=== PATIENT | female | born 2000 | race Caucasian/White ===

== ENCOUNTER → 2022-06-08 | Emergency (ER) | payer OTHER ==
[~2022-06-08] VITALS: Ht 165.1 cm; Wt 86.2 kg
== END | disposition home or self-care (01) ==
LOC: ER 00:39
DX: S69.81XA Other specified injuries of right wrist, hand and finger(s), initial encounter (principal); W46.1XXA Contact with contaminated hypodermic needle, initial encounter; Y93.9 Activity, unspecified; Y92.9 Unspecified place or not applicable

== ENCOUNTER 2022-10-04 19:46 | Emergency (ER) | payer OTHER ==
[~2022-10-04] VITALS: Ht 165.1 cm; Wt 85.7 kg
[2022-10-05] MEDS ORDERED: OSEL75CA PO (00:22)
== END 2022-10-05 00:28 | disposition home or self-care (01) ==
LOC: ER 19:46
DX: J10.1 Influenza due to other identified influenza virus with other respiratory manifestations (principal); Z20.822 Contact with and (suspected) exposure to COVID-19

== ENCOUNTER 2023-05-03 00:01 | Emergency (ER) | payer OTHER ==
[~2023-05-03] VITALS: Ht 165.1 cm; Wt 74.8 kg
[~2023-05-03 00:01] MED LIST: OSEL75CA PO
== END 2023-05-03 01:47 | disposition home or self-care (01) ==
LOC: ER 00:01
DX: O26.851 Spotting complicating pregnancy, first trimester (principal); Z3A.01 Less than 8 weeks gestation of pregnancy

== ENCOUNTER 2023-05-25 23:16 | Emergency (ER) | payer OTHER ==
[~2023-05-25] VITALS: Ht 165.1 cm; Wt 77.6 kg
[2023-05-26] MEDS ORDERED: CEPHALEXIN500 MG PO (05:07)
== END 2023-05-26 05:16 ==
LOC: ER 23:16
DX: O23.41 Unspecified infection of urinary tract in pregnancy, first trimester (principal); N39.0 Urinary tract infection, site not specified; Z3A.12 12 weeks gestation of pregnancy

== ENCOUNTER 2023-12-02 14:30 | Inpatient (IN) | payer OTHER ==
[~2023-12-02] VITALS: Ht 165.1 cm; Wt 88.9 kg
[~2023-12-02 14:30] MED LIST changes: +CEPHALEXIN500 MG PO
[2023-12-07 08:50] LABS: HEMATOCRIT 37.4 % (36.0-45.00); HEMOGLOBIN 12.3 g/dL (12.0-15.00); MEAN CELL VOLUME 72.8 fL (80.00-100.00); PLATELET COUNT 144 K/uL (150-450); RED BLOOD COUNT 5.13 M/uL (4.00-6.00)
[2023-12-07 08:56] LABS: RED CELL DISTRIBUTION WIDTH 16.9 % (11.5-14.5)
[2023-12-07] MEDS ORDERED: OBSTETRIX ONE1 EAC1 (09:03)
[2023-12-07 09:09] LABS: INR 0.98; PARTIAL THROMBOPLASTIN TIME 29.4 SECONDS (22.0-34.0); PROTHROMBIN TIME 10.3 SECONDS (9.0-11.5)
[2023-12-07 09:20] LABS: ALBUMIN 2.7 gm/dL (3.4-5.0); BILIRUBIN TOTAL 0.53 mg/dL (0.3-1.2); CALCIUM 8.6 mg/dL (8.5-10.1); CREATININE SERUM 0.61 mg/dL (0.55-1.02); GFR 120.5; GLOBULINA 3.9 G/DL (2.4-3.5); POTASSIUM 3.85 mEq/L (3.5-5.1); TOTAL PROTEIN 6.6 gm/dL (6.4-8.2)
[2023-12-07 12:53] LABS: HEMATOCRIT 38.9 % (36.0-45.00); HEMOGLOBIN 12.7 g/dL (12.0-15.00); MEAN CELL VOLUME 73.4 fL (80.00-100.00); MEAN CORPUSCULAR HEMOGLOBIN 23.9 pg (27.00-32.0); MEAN CORPUSCULAR HGB CONC 32.6 g/dl (32.0-36.0); PLATELET COUNT 151 K/uL (150-450); RED CELL DISTRIBUTION WIDTH 17.3 % (11.5-14.5)
[2023-12-08 07:05] LABS: HEMATOCRIT 29.9 % (36.0-45.00); MEAN CORPUSCULAR HGB CONC 33.2 g/dl (32.0-36.0); PLATELET COUNT 160 K/uL (150-450)
[2023-12-08 07:17] LABS: MEAN CORPUSCULAR HEMOGLOBIN 24.1 pg (27.00-32.0)
[2023-12-08 07:18] LABS: HEMOGLOBIN 9.9 g/dL (12.0-15.00)
== END 2023-12-09 13:52 | disposition home or self-care (01) | DRG 798 ==
LOC: LDR 12-07 06:21 → OB/GYN 12-07 06:21
PROVIDERS: Obstetrics & Gynecology; ADMIT Obstetrics & Gynecology; ATTEND Obstetrics & Gynecology
PROC: 0UB70ZZ Excision of Bilateral Fallopian Tubes, Open Approach (ICD-10-PCS; 2023-12-07)
PROC: 0UQMXZZ Repair Vulva, External Approach (ICD-10-PCS; 2023-12-07)
PROC: 4A1HXCZ Monitoring of Products of Conception, Cardiac Rate, External Approach (ICD-10-PCS; 2023-12-07)
PROC: 10E0XZZ Delivery of Products of Conception, External Approach (ICD-10-PCS; principal; 2023-12-07 13:45)
DX: O71.82 Other specified trauma to perineum and vulva (principal); Z37.0 Single live birth; Z3A.39 39 weeks gestation of pregnancy; Z30.2 Encounter for sterilization; Z20.822 Contact with and (suspected) exposure to COVID-19